=== PATIENT | female | born 1985 | race Caucasian/White ===

== ENCOUNTER → 2017-09-04 | Outpatient (CLI) | payer BC ==
[~2017-09-04] MED LIST: ACET500 PO; ALBU3IS; ALBU90OI INH; AMOX500 PO; AZIT250 PO; Adipex-P37.5 M1 PO; CYCL10 PO; FAMO20 PO; FLUC150A PO; FLUO20 PO; HYDACE5 PO; MULVITMINE PO; NAPR500 PO; NICO14TP TOP; NITR100CA PO; ONDA4 PO; ORTHO TRI-CYCL1 EACH PO; OXYACE5T PO; PRED10 PO; PRED20 PO; PROBIOTIC1 EAC1 PO; PROM25 PO; PSEU120ER PO; RALT400 PO; RXCYCL10 PO; RXHYDACE PO; SULTRIDS PO; Truvada Tablet1 EACH PO; Zithromax250 MG PO; Zofran Odt4 MG SL
== END | disposition home or self-care (01) ==
LOC: LAB SHORT 13:08 → LAB EV 13:08
DX: L02.01 Cutaneous abscess of face (principal)
CPT/HCPCS: 87070; 87205

== ENCOUNTER → 2020-04-03 | Outpatient (CLI) | payer SELFPAY | END | disposition home or self-care (01) | LOC: LAB EV 15:38 → LAB SHORT 15:38 | DX: L40.4 Guttate psoriasis (principal) | CPT/HCPCS: 87081; 87147 ==